=== PATIENT | male | born 1980 | race Caucasian/White ===

== ENCOUNTER 2022-02-17 09:21 | Emergency (ER) | payer BC, SELFPAY ==
[2022-02-17 09:25] VITALS: BP 161/100; PULSE 57; RESP 16; TEMP 35.9; O2SAT 100
--- NOTE | 2022-02-17 09:36 | ED.EYEPROB ---
HPI - Eye Problem General Chief complaint: Eye Problems Stated complaint: POSSIBLE PINKEYE Time Seen by Provider: 02/17/22 09:23 Source: patient Mode of arrival: ambulatory Limitations: no limitations History of Present Illness HPI Narrative: this is a 41-year-old male that presents with some conjunctival injection on the right, the patient does wear contacts and has had a yellowish discharge and crustiness no foreign body sensation no blurry vision no fever chills no nasal discharge no itching. chief complaint: eye redness Onset (ago): day(s) Onset description: gradual Duration: constant Location: right eye Eye Symptoms: redness and discharge Related Data Allergies Allergy/AdvReac Type Severity Reaction Status Date / Time No Known Allergies Allergy Verified 02/17/22 09:34 Review of Systems Review of Systems: All systems reviewed & are unremarkable except as noted in HPI and below PMFSH Past Medical History Medical History Patient denies medical problems Exam Const: General: healthy appearing Nutritional Appearance: well nourished Limitations: no limitations HENMT: Head: normal to inspection Face/Nose/Sinus: Normal external nose present Face and sinus: normal facial exam Eyes: Conjunctivae: conjunctival abnormality Pupils: Equal, round and reactive pupils present EOM: EOMs intact bilaterally Direct Ophthalmoscopy: photophobia Neck: Neck: normal visual inspection Chest: Chest palpation & inspection: normal inspection of the chest Resp: Effort & Inspection: normal respiratory effort Auscultation: clear to auscultation bilaterally Cardio: Rate: regular rate Rhythm: regular rhythm GI: Auscultation: normal bowel sounds Skin: General skin exam: normal color Rashes: no rashes Neuro: General: patient oriented x3 and moves all extremities Extrem: General: normal to inspection Psych: Mental Status: mental status grossly normal Affect: normal affect Course Course Emergency Course: patient received a antibiotic eye drop to his right eye. Critical Care Time Critical Care Time Critical Care Time: No Discharge Plan Discharge Clinical Impression: Bacterial conjunctivitis Patient Disposition: Home, Self-Care Condition: Stable Instructions: Antibiotic Form, Conjunctivitis (ED) Additional Instructions: take medicine as prescribed and follow-up with primary care physician if symptoms persist or worsen. advised patient not to wear contacts during the duration of antibiotic eyedrops. Blood pressure is mildly elevated today advised to follow-up primary care physician to monitor blood pressure. Prescriptions: New neomycin-polymyxin B-dexameth [Maxitrol] 3.5mg/mL-10,000 unit/mL-0.1 % drops,suspension 1 drp RIGHT EYE Q6H 7 Days Qty: 5 0RF Follow-up/Referrals: Jacquelyn,Malik Wilcox MD [Primary Care Provider] - Time of Disposition: 09:42
[2022-02-17] MEDS: NEOMYCIN/POLYMYXIN/DEXAMETH OP SUSP 5 ML BTL 1 DROP RIGHT EYE (09:51)
== END 2022-02-17 09:56 | disposition home or self-care (01) ==
LOC: CHSED 09:48
PROVIDERS: Emergency Provider Emergency Medicine; PCP Internal Medicine
DX: H10.89 Other conjunctivitis (principal)
CPT/HCPCS: 99283; A9270

== ENCOUNTER 2022-07-13 07:13 | Emergency (ER) | payer BC, SELFPAY ==
--- NOTE | 2022-07-13 07:16 | ED.EAR ---
HPI - Ear Problem General Chief complaint: Ear Stated complaint: Right ear pain Time Seen by Provider: 07/13/22 07:15 Source: patient Mode of arrival: ambulatory Limitations: no limitations History of Present Illness HPI Narrative: 41-year-old male with no significant past medical history presents to the ER with -- upper respiratory tract symptoms over the past 3 days -- right ear fullness and pain for the past 4 hours. No discharge. No deafness. No prior history of ear infections. No fever or chills. MD Complaint: ear pain Location: right ear Duration: constant Severity: moderate Relieving factors: nothing Exacerbating factors: nothing Context: Reports recent illness ( Recent upper respiratory tract infection over the past 3 days.) Discharge from ear: Reports no Treatment prior to arrival: none Related Data Allergies Allergy/AdvReac Type Severity Reaction Status Date / Time No Known Allergies Allergy Verified 07/13/22 07:25 Review of Systems Review of Systems: All systems reviewed & are unremarkable except as noted in HPI and below Constitutional: Constitutional: Reports as per HPI and Reports no additional constitutional complaints Eyes: Eyes: Reports as per HPI and Reports no additional eye complaints ENT: Comments: Right ear pain Cardiovascular: Cardiovascular: Reports as per HPI and Reports no additional cardiovascular complaints Respiratory: Respiratory: Reports as per HPI and Reports no additional respiratory complaints Comments: loud snoring Gastrointestinal: Gastrointestinal: Reports as per HPI and Reports no additional gastrointestinal complaints Genitourinary: Genitourinary: Reports no additional male genitourinary complaints and Reports as per HPI Musculoskeletal: Musculoskeletal: Reports no additional musculoskeletal complaints and Reports as per HPI Integumentary/Breasts: Skin/Breast: Reports system reviewed and no additional complaints, except as docu and Reports as per HPI Neurologic: Reports system reviewed and no additional complaints, except as documented and Reports as per HPI Psychiatric: Psychiatric: Reports no additional psychiatric complaints and Reports as per HPI Endocrine: Endocrine: Reports no additional endocrine complaints and Reports as per HPI Hematologic/Lymphatic: Hematologic/Lymphatic: Reports no additional hematologic/lymphatic complaints and Reports as per HPI Allergic/Immunologic: Allergic/Immunologic: Reports no additional allergic/immunologic complaints and Reports as per HPI PMFSH Past Medical History Medical History Patient denies medical problems Exam Const: General: healthy appearing and no acute distress Nutritional Appearance: well nourished Orientation/consciousness: patient oriented x3 Limitations: no limitations HENMT: Head: normal to inspection Ears: external ears normal and TM's normal bilaterally ( right tympanic membrane is red and bulging) Face/Nose/Sinus: Normal external nose present Face and sinus: normal facial exam Mouth: Yes Normal oral and palatal mucosa present Teeth and gingiva: dentition normal Throat: posterior oropharynx normal Other: crowded oropharynx Eyes: Conjunctivae: conjunctivae normal Pupils: Equal, round and reactive pupils present EOM: EOMs intact bilaterally Direct Ophthalmoscopy: no photophobia Neck: Neck: normal visual inspection, no lymphadenopathy and no meningeal signs Chest: Chest palpation & inspection: normal inspection of the chest Resp: Effort & Inspection: normal respiratory effort Auscultation: clear to auscultation bilaterally Cardio: Rate: regular rate Rhythm: regular rhythm GI: Auscultation: normal bowel sounds Other: no tenderness/rigidity / rebound. : General: Yes no CVA tenderness Back/Spine/Pelvis: Back: no CVA tenderness Skin: General skin exam: normal color Rashes: no rashes Wounds: no wounds Neuro: Gener
[2022-07-13 07:20] VITALS: BP 150/103; PULSE 88; RESP 18; TEMP 37; O2SAT 98
[2022-07-13] MEDS: HYDROcodone/acetaminophen (*CRX) 5-325 MG TABLET 1 TAB PO (07:43)
[2022-07-13 08:20] VITALS: BP 148/99; PULSE 86; RESP 18; TEMP 36.8; O2SAT 98
== END 2022-07-13 08:22 | disposition home or self-care (01) ==
LOC: CHSED 07:45
PROVIDERS: Emergency Provider Internal Medicine Critical Care Medicine; PCP Internal Medicine
DX: H66.91 Otitis media, unspecified, right ear (principal); I10 Essential (primary) hypertension
CPT/HCPCS: 99283; A9270

== ENCOUNTER 2024-10-11 10:28 | Emergency (ER) | payer BC, SELFPAY ==
--- NOTE | ~2024-10-11 | CT_ITS ---
History: Lower back pain radiating to the right leg x2 days without a known injury. PROCEDURE: CT lumbar spine without intravenous contrast. COMPARISON: None TECHNIQUE: Multiple contiguous axial images of the lumbar spine were performed without the administration of int ravenous contrast. DLP: 1627 mGy-cm FINDINGS: The alignment of the lumbar spine is maintained. Degenerative disease is noted, with bridging osteophyte formation and disc space narrowing at the lev els of T11/T12 and L1/L2. Anterior osteophyte formation within the inferior endplate of the vertebral body of L3. Superior endplate sclerosis at the level of S1 without significant disc space narrowing. AT THE LEVEL OF L1/L2: No significant degenerative disc disease is identified. AT THE LEVEL OF L2/L3: A broad-based disc protrusion is identified with mass effect on both the spina l canal and bilateral neural foramen. Trace hypertrophy of the ligamentum flavum is also noted, contributing to the degree of spinal stenos is. Spinal canal measures 14.8 mm in anterior to posterior dimension at this level. AT THE LEVEL OF L3/L4: A right paracentral disc protrusion with mass effect on both the spinal canal and right neural foramen. Moderate hypertrophy of the ligamentum flavum is also noted contributing to the degree of spinal sten osis. The spinal canal measures 12.2 mm in anterior to posterior dimension at this level. AT THE LEVEL OF L4/L5: A right paracentral disc protrusion with mass effect on both the spinal canal and right neural foramen. Hypertrophy of the ligamentum flavum is also noted, contributing to the degree of spinal stenosis The spinal canal measures 10.4 mm in anterior to posterior dimension at this level. AT THE LEVEL OF L5/S1: No significant disc protrusion. No acute compression fractures are present. No significant atrophy of the paraspinous musculature is present Asymmetric iliopsoas muscles are noted, with the left being larger than the right, likely compensatin g for the right paracentral disc disease. Impression: No acute compression fractures. Significant disc disease with right paracentral spinal stenosis most prominent at the level of L4/L5, as detailed above. Reviewed, dictated and finalized at location A. Impression: No acute compression fractures. Significant disc disease with right paracentral spinal stenosis most prominent at the level of L4/L5, as detailed above.
--- OUTSIDE RECORDS SUMMARY | 2024-10-11 10:31 | XMS_ITS | Encounter Summary ---
Author Organization [facility] Address 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 [address] [place] [address] PCP - General 02/10/04 documented as of this encounter
--- OUTSIDE RECORDS SUMMARY | 2024-10-11 10:31 | XMS_ITS | Encounter Summary ---
Author Organization [facility] Address 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
--- OUTSIDE RECORDS SUMMARY | 2024-10-11 10:31 | XMS_ITS | Encounter Summary ---
Author Organization [facility] Address [address] [place] [address] Care Team Providers Care Superintendent Transportation Name Role Phone Malik Valladares MD Primary Care Provider [phone] Encounter Details Date Type Department Care Team (Late st Contact Info) Description 06/20/2007 Orders Only [facility] Internal Medicine [address] [address] Malik Valladares MD [address] [place] [address] Social History Tobacco Use Types Packs/Day Years Used Date Smoking Tobacco: Never Assessed Sex and Gender Information Value Date Recorded Sex Assigned at Not on file 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 DISCUSSED SMOKING: neg. PHYSICAL EXAMINATION: CONSTITUTIONAL: GENERAL APPEARANCE: Healthy appearing patient in no distress. EARS, NOSE, MOUTH AND THROAT: EARS: EFFUSION PRESENT BILATERALLY, TYMPANIC MEMBRANES INFLAMED BILATERALLY. ORAL: OROPHARYNX ERYTHEMATOUS. NECK/THYROID: Trachea midline. No thyroid enlargement, tenderness, or mass. No supraclavicular or cervical adenopathy. RESPIRATORY: Clear to auscultation and percussion. Normal respiratory effort. CARDIOVASCULAR: CARDIAC: Regular rhythm. No murmurs, rubs, or gallops. ARTERIAL: No aortic bruits. EDEMA/VARICOSITIES OF EXTREMITIES: No edema or varicosities. GASTROINTESTINAL: ABDOMEN: Soft, non-tender, without masses. Bowel sounds active. LIVER/SPLEEN/KIDNEY: No hepatosplenomegaly, tenderness or nodularity. Kidneys not palpable. ASSESSMENT/PLAN: 790.5-ABNORMAL LIVER ENZYMES reassess wt loss advised 461.9-SINUSITIS UNSPECIFIED rx MEDICATIONS: LEVAQUIN ORAL TABLET 500 MG, 1 Every Morning, 10 Dispensed, status: NEW PRESCRIPTION, 06/20/2007. VERAMYST NASAL SUSPENSION 27.5 MCG/SPRAY, 2 Every Morning, 2 Dispensed, status: NEW PRESCRIPTION, 06/20/2007. 796.2-BLOOD PRESSURE ELEVATED W/O DX OF HTN LAB ORDERS: 3 mo Order number: [id number] Test Ordered: COMPREHENSIVE METABOLIC PANEL & GFR 1112 Order number: [id number] Test Ordered: LIPID PANEL 1078 Order number: [id number] Test Ordered: TSH 1720 PREVENTIVE COUNSELING The patient was counseled regarding the appropriate use of alcohol, diet, regular sustained exercise for at least 30 minutes 3-4 times per week. Patient Education: Risks, benefits, and possible side effects of medication(s) were reviewed with the patient. The patient was allowed to ask questions to stated satisfaction. RETURN VISIT : Patient instructed to return in 3 months. Electronically Signed by: Malik Valladares MD on Wednesday, June 20, 2007 * Malik Valladares MD - 09/13/2007 6:09 PM CDT WEIGHT: 259lbs BLOOD PRESSURE: 150/90 Right Arm Sitting TEMPERATURE: 36.67??c Oral NURSE NAME: Jean-Pierre Willams N TOBACCO USE Patient does not currently use tobacco. CHIEF COMPLAINT Patient complains of head congestion, cough, earaches, sore throat. documented in this encounter Plan of Treatment Not on file documented as of this encounter Visit Diagnoses Not on filedocumented in this encounter Care Teams Superintendent Transportation Relationship Specialty Start Date End Date Malik Valladares MD [address] [place] [address] PCP - General 02/10/04 documented as of this encounter
--- OUTSIDE RECORDS SUMMARY | 2024-10-11 10:31 | XMS_ITS | Encounter Summary ---
Author Organization [facility] Address [address] [place] [address] Care Team Providers Care Laboratory Technician Name Role Phone Malik Valladares MD Primary Care Provider [phone] Encounter Details Date Type Department Care Team (Late st Contact Info) Description 05/07/2003 Outpatient Historical [facility] Internal Medicine [address] [address] Malik Valladares MD [address] [place] [address] Social History Tobacco Use Types Packs/Day Years Used Date Smoking Tobacco: Never Assessed Sex and Gender Information Value Date Recorded Sex Assigned at Not on file Legal Sex Male 5:27 AM 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 MANAGER Gender Identity Not on file Sexual Orientation Not on file documented as of this encounter Last Filed Vital Signs Vital Sign Reading Time Taken Comments Blood Pressure 130/88 05/07/2003 4:00 PM STAFFING MANAGER Pulse - - Temperature - - Respiratory Rate - - Oxygen Saturation - - Inhaled Oxygen Concentration - - Weight 112.5 kg (248 lb) 05/07/2003 4:00 PM STAFFING MANAGER Height 175.3 cm (5' 9) 05/07/2003 4:00 PM STAFFING MANAGER Body Mass Index 36.62 05/07/2003 4:00 PM STAFFING MANAGER documented in this encounter Plan of Treatment Not on file documented as of this encounter Visit Diagnoses Not on filedocumented in this encounter Care Teams Laboratory Technician Relationship Specialty Start Date End Date Malik Valladares MD [address] [place] [address] PCP - General 02/10/04 documented as of this encounter
--- OUTSIDE RECORDS SUMMARY | 2024-10-11 10:31 | XMS_ITS | Encounter Summary ---
Author Organization [facility] Address 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
--- OUTSIDE RECORDS SUMMARY | 2024-10-11 10:31 | XMS_ITS | Clinical Summary ---
Author Organization [facility] Address [address] [place] [address] Care Team Providers Care Stringed Instrument Repairer Name Role Phone Malik Valladares MD Primary Care Provider [phone] Allergies Active Allergy Reactions Criticality Noted Date Comments Methylprednisolone Nausea and Vomiting,Dizziness Low 11/15/2013 Medications fluticasone (FLONASE) 50 mcg/spray Both Nostril SpSn Administer 2 Sprays in each nostril daily. 16 Gram 3 3 Active neomycin-polymy liz-hydrocortis one (CORTISPORIN) 3.5-10,000-1 mg/mL-unit/mL-% otic solution Administer 3 Drops in left ear 4 times daily. 10 mL 7 Active HYDROcodone-shonna taminophen (NORCO) 5-325 mg tablet Take 1 Tablet by mouth every 4 hours as needed for Pain, Moderate. Max Daily Amount: 6 Tablets 10 Tablet 9 Active DULoxetine (CYMBALTA) 30 mg Capsule, Delayed Release(E.C.) Take 1 Capsule (30 mg) by mouth daily. 90 Capsule 3 9 Active Active Problems Patient Care Coordination No te Formatting of this note migh t be different from the original. Prev 05/23/18 Problem Noted Date Diagnosed Date Elevated blood pressure read ing without diagnosis of hypertension 06/20/2007 Other nonspecific abnormal serum enzyme levels 0 05/07/2003 Resolved Problems Problem Noted Date Diagnosed Date Resolved Date Acute sinusitis, unspecified 06/20/2007 12/26/2016 DIARRHEA NOS 01/26/2004 06/06/2011 Rosacea 05/07/2003 06/06/2011 STOMACH FUNCTION DIS NEC 05/07/2003 Immunizations Immunization Administration Dates Next Due (ADACEL/BOOSTRIX)(10 YR UP) TDAP VACCINE, 0.5ML, IM 05/03/2018,11/15/2013 (PNEUMOVAX 23)(50 YRS UP) PN EUMOCOCCAL POLYSACCHARIDE (PPV23) 0.5 ML, IM 05/09/2018,07/29/1998 (TDVAX)(7 YRS UP) TETANUS AN D DIPHTHERIA TOXOIDS, ADSORBED (2 LF OF TETANUS TOXOID AND 2 LF OF DIPHTHERIA TOXOID), 0.5ML (PF), IM 07/29/1998 Influenza Seasonal Unspecified Formulation IM Family History Medical History Relation Name Comments Diabetes Father High Cholesterol Father Hypertension Father Diabetes Mother High Cholesterol Mother Hypertension Mother Relation Name Status Comments Father Mother Social History Tobacco Use Types Packs/Day Years Used Date Smoking Tobacco: Former Alcohol Use Standard Drinks/Week Comments Yes 0 (1 standard drink = 0.6 oz pur e alcohol) Sex and Gender Information Value Date Recorded Sex Assigned at Not on file Legal Sex Male 5:27 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 Gender Identity Not on file Sexual Orientation Not on file Last Filed Vital Signs Vital Sign Reading Time Taken Comments Blood Pressure 110/80 08/21/2018 10:38 AM CDT Pulse 85 08/21/2018 10:38 AM CDT Temperature 36.9 C (98.5 F) 08/21/2018 10:38 AM CDT Respiratory Rate - - Oxygen Saturation 96% 08/21/2018 10:38 AM CDT Inhaled Oxygen Concentration - - Weight 99.3 kg (219 lb) 08/21/2018 10:38 AM CDT Height 177.8 cm (5' 10) 08/21/2018 10:38 AM CDT Body Mass Index 31.42 08/21/2018 10:38 AM CDT Plan of Treatment Health Maintenance Due Date Last Done Comments HEPATITIS B VACCINES (1 of 3 - 19+ 3-dose series) 1997 COLORECTAL SCREENING 09/27/2023 Colorectal Cancer Screening 09/27/2023 FIT-DNA Q 3 years 09/27/2023 FIT/FOBT Q 1 year 09/27/2023 Flex Sig/CT Colonography Q 5 years 09/27/2023 INFLUENZA VACCINE (#1) 2023 01/08/2018 Preventative Visit- Commercial 04/10/2024 05/23/2018, 12/26/2016, 11/15/2013, Additional history exists DTAP/TDAP/TD VACCINES (3 - Td or Tdap) 05/03/2028 05/03/2018, 11/15/2013, 07/29/1998 HPV VACCINES Aged Out No longer eligi ble based on patient's age to complete this topic Insurance Care Teams Stringed Instrument Repairer Relationship Specialty Start Date End Date Malik Valladares MD [address] [place] [address] PCP - General 02/10/04
--- OUTSIDE RECORDS SUMMARY | 2024-10-11 10:31 | XMS_ITS | Encounter Summary ---
Author Organization [facility] Address [address] [place] [address] Care Team Providers Care Detail Sergeant Name Role Phone Malik Valladares MD Primary Care Provider [phone] Encounter Details Date Type Department Care Team (Late st Contact Info) Description 01/26/2004 Outpatient Historical [facility] Internal Medicine [address] [address] Malik Valladares MD [address] [place] [address] Social History Tobacco Use Types Packs/Day Years Used Date Smoking Tobacco: Never Assessed Sex and Gender Information Value Date Recorded Sex Assigned at Not on file Legal Sex Male 5:27 AM ACCESS CONTROL OFFICER Gender Identity Not on file Sexual Orientation Not on file documented as of this encounter Last Filed Vital Signs Vital Sign Reading Time Taken Comments Blood Pressure 130/78 01/26/2004 10:30 AM CDT Pulse - - Temperature - - Respiratory Rate - - Oxygen Saturation - - Inhaled Oxygen Concentration - - Weight 113.9 kg (251 lb) 01/26/2004 10:30 AM CDT Height - - Body Mass Index 37.07 05/07/2003 4:00 PM ACCESS CONTROL OFFICER documented in this encounter Plan of Treatment Not on file documented as of this encounter Visit Diagnoses Not on filedocumented in this encounter Care Teams Detail Sergeant Relationship Specialty Start Date End Date Malik Valladares MD [address] [place] [address] PCP - General 02/10/04 documented as of this encounter
--- OUTSIDE RECORDS SUMMARY | 2024-10-11 10:31 | XMS_ITS | Encounter Summary ---
Author Organization [facility] Address 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
--- OUTSIDE RECORDS SUMMARY | 2024-10-11 10:31 | XMS_ITS | Data Portability ---
Author Organization [facility] Address [address] [place] [address] Care Team Providers Care Quality Control Specialist Name Role Phone NUPUR STONE Primary Care Provider Assessment No assessment recorded. Plan of Treatment Reminders Order Date Submit Date Provider Last Modified By Organization Details Last Modified Time Details Appointments ANY 15 2024 03:00P M Nupur Stone APN, WOOD MILLING MACHINE TENDER-C Not available Not available Not available Lab noninvasi ve colorecta l cancer DNA + occult blood screening , QL, stool [facility]24 [facility] [address], [address], [place], [address], 07/09/2024 11:03:31 TSH, ultra-sen sitive, serum 2024 025 [facility], [address], [address], [place], [address], 07/10/2024 04:09:38 CMP, serum or plasma 2024 025 [facility], [address], [address], [place], [address], 07/10/2024 03:08:44 lipid panel, serum 2024 025 [place] [facility] [facility], [address], [address], [place], [address], 07/10/2024 03:08:43 CBC 2024 025 [place] [facility], [address], [address], [place], [address], 07/10/2024 03:08:46 Referral gastroent erologist referral 2024 025 [facility], [address], [address], [place], [address], 10/09/2024 10:43:05 nephrolog ist referral 2024 025 esha Cook MD, [address] [facility] , [address], [address], [place], [address], 10/04/2024 08:38:46 Procedures None recorded. Surgeries None recorded. Imaging None recorded. Medication Orders None recorded. Patient TargetsNo targets recorded. Patient Instructions Encounter Date Encounter Id Patient Instructions Last Modified By Organization Details Last Modified Time 07/09/2024 [id number] A healthy lifestyle: care instructions Not available 07/09/2024 11:03:27 Avoid eating lat e at night and foods that are spicy or acidic. Decrease fatty foods and increase fresh fruits and vegetables and daily intake of fiber. Drink at least 8-10 glasses of water per day. Increase activity level and work up to at least 30 minutes of exercise most days of the week. Not available 07/09/2024 18:32:15 f/u 3 months DWP barriers to care: none Not available 07/09/2024 18:32:19 Reason for Referral Family Services Specialist Referral for Ab sent kidney Referring Physician: Nupur Stone [facility], Encounter Date: 07/09/2024 [employer] Referral for Hiatal hernia Referring Physician: Nupur Stone [facility], Encounter Date: 07/09/2024 Results Created Date Observation Date Name Description Value Unit Range Abnormal Flag Note LastModifiedBy Organization Detail LastModifiedTime 07/10/19 25 07/09/2024 LIPID PANEL cholesterol, total 218 mg/dL 100-19 9 above high normal Not Available [facility] [address] [place], [address], 07/10/2024 03:08:43 07/10/19 25 07/09/2024 LIPID PANEL triglyceride s 311 mg/dL 0-149 above high normal Not Available [facility] [address] [place] [address], [address], 07/10/2024 03:08:43 07/10/19 25 07/09/2024 LIPID PANEL HDL cholesterol 38 mg/dL 40-999 below low normal Not Available [facility] [address] [place], [address], 07/10/2024 03:08:43 07/10/19 25 07/09/2024 LIPID PANEL VLDL cholesterol damaris 62 mg/dL 5-40 above high normal Not Available [facility] [address] [place] [address], [address], 07/10/2024 03:08:43 07/10/19 25 07/09/2024 LIPID PANEL LDL chol calc (nih) 161 mg/dL 0-99 above high normal Not Available [facility] [address] [place], [address], 07/10/2024 03:08:43 07/10/19 25 07/09/2024 COMP. METAB OLIC PANEL (14) glucose 285 mg/dL 70-99 above high normal Not Available [facility] [address] [place], [address], 07/10/2024 03:08:44 07/10/19 25 07/09/2024 COMP. METAB OLIC PANEL (14) BUN 15 mg/dL 6-24 Not Available [facility] [address] [place], [address], 07/10/2024 03:08:44 07/10/19 25 07/09/2024 COMP. METAB OLIC PANEL (14) creatinine 0.86 mg/dL 0.76-1 .27 Not Available [facility] [address] [place] [address], [address], 07/10/2024 03:08:44 07/10/19 25 07/09/2024 COMP. METAB OLIC PANEL (14) eGFR 109 >=60 Units for eGFR value s are mL/mi n/1.7 3 The eGFR Calcu latio n has not been valid ated for patie nts under the age of 18. If test resul ts are displ ayed for a patie nt under the age of 18, disre vern that value . Not Available [facility] [address] [place], [address], 07/10/2024 03:08:44 07/10/19 25 07/09/2024 COMP. METAB OLIC PANEL (14) BUN/creatini ne ratio 18 9-20 Not Available [facility] [address] [place], [address], 07/10/2024 03:08:44 07/10/19 25 07/09/2024 COMP. METAB OLIC PANEL (14) sodium 139 mmol/ L 134-14 4 Not Available [facility] [address] [place], [address], 07/10/2024 03:08:44 07/10/19 25 07/09/2024 COMP. METAB OLIC PANEL (14) potassium 4.7 mmol/ L 3.5-5. 2 Not Available [facility] [address] [place], [address], 07/10/2024 03:08:44 07/10/19 25 07/09/2024 COMP. METAB OLIC PANEL (14) chloride 100 mmol/ L 96-106 Not Available [facility] [address] [place], [address], 07/10/2024 03:08:44 07/10/19 25 07/09/2024 COMP. METAB OLIC PANEL (14) carbon dioxide, total 26 mmol/ L 20-29 Not Available [facility] [address] [place] [address], [address], 07/10/2024 03:08:44 07/10/19 25 07/09/2024 COMP. METAB OLIC PANEL (14) calcium 10.1 mg/dL 8.7-10 .2 Not Available [facility] [address] [place], [address], 07/10/2024 03:08:44 07/10/19 25 07/09/2024 COMP. METAB OLIC PANEL (14) protein, total 7.3 g/dL 6.0-8. 5 Not Available [facility] [address] [place], [address], 07/10/2024 03:08:44 07/10/19 25 07/09/2024 COMP. METAB OLIC PANEL (14) albumin 4.5 g/dL 4.1-5. 1 Not Available [facility] [address] [place], [address], 07/10/2024 03:08:44 07/10/19 25 07/09/2024 COMP. METAB OLIC PANEL (14) globulin, total 2.8 g/dL 1.5-4. 5 Not Available [facility] [address] [place], [address], 07/10/2024 03:08:44 07/10/19 25 07/09/2024 COMP. METAB OLIC PANEL (14) A/G ratio 2.0 1.2-2. 2 Not Available [facility] [address] [place], [address], 07/10/2024 03:08:44 07/10/19 25 07/09/2024 COMP. METAB OLIC PANEL (14) bilirubin, total 0.3 mg/dL 0.0-1. 2 Not Available [facility] [address] [place], [address], 07/10/2024 03:08:44 07/10/19 25 07/09/2024 COMP. METAB OLIC PANEL (14) alkaline phosphatase 76 IU/L 44-121 Not Available [facility] [address] [place], [address], 07/10/2024 03:08:44 07/10/19 25 07/09/2024 COMP. METAB OLIC PANEL (14) AST (SGOT) 39 U/L 0-40 Not Available [facility] [address] [place], [address], 07/10/2024 03:08:44 07/10/19 25 07/09/2024 COMP. METAB OLIC PANEL (14) ALT (SGPT) 86 IU/L 0-44 above high normal Not Available [facility] [address] [place], [address], 07/10/2024 03:08:44 07/10/19 25 07/09/2024 CBC, PLATE LET, NO DIFFE RENTI AL WBC 7.4 x10e3 /uL 3.4-10 .8 Not Available [facility] [address] [place], [address], 07/10/2024 03:08:45 07/10/19 25 07/09/2024 CBC, PLATE LET, NO DIFFE RENTI AL RBC 5.03 x10e6 /uL 4.14-5 .80 Not Available [facility] [address] [place], [address], 07/10/2024 03:08:45 07/10/19 25 07/09/2024 CBC, PLATE LET, NO DIFFE RENTI AL hemoglobin 15.4 g/dL 13.0-1 7.7 Not Available [facility] [address] [place], [address], 07/10/2024 03:08:45 07/10/19 25 07/09/2024 CBC, PLATE LET, NO DIFFE RENTI AL hematocrit 45.3 % 37.5-5 1.0 Not Available [facility] [address] [place], [address], 07/10/2024 03:08:45 07/10/1907/09/2024 CBC, PLATE LET, NO DIFFE RENTI AL MCV 90 fL 79-97 Not Available [facility] [address] [place], [address], 07/10/2024 03:08:45 07/10/1907/09/2024 CBC, PLATE LET, NO DIFFE RENTI AL MCH 30.6 pg 26.6-3 3.0 Not Available [facility] [address] [place], [address], 07/10/2024 03:08:45 07/10/1907/09/2024 CBC, PLATE LET, NO DIFFE RENTI AL MCHC 34.0 g/dL 31.5-3 5.7 Not Available [facility] [address] [place], [address], 07/10/2024 03:08:45 07/10/1907/09/2024 CBC, PLATE LET, NO DIFFE RENTI AL RDW 12.5 % 11.5-1 4.5 Not Available [facility] [address] [place], [address], 07/10/2024 03:08:45 07/10/1907/09/2024 CBC, PLATE LET, NO DIFFE RENTI AL platelets 260 x10e3 /uL 150-45 0 Mean Plate let Volum e 10.1 fL 8.9-1 2.7 N Not Available [facility] [address] [place], [address], 07/10/2024 03:08:45 07/10/1907/09/2024 CBC, PLATE LET, NO DIFFE RENTI AL NRBC 0 % 0-0 Not Available [facility] [address] [place] [address], [address], 07/10/2024 03:08:45 07/10/19 25 07/10/2024 TSH RFX ON ABNOR MAL TO FREE T4 TSH 2.540 uIU/m L 0.450- 4.500 Not Available [facility] ([facility]) [address] [facility], [place], [address], 07/10/2024 04:09:38 07/10/19 25 07/10/2024 VERBA L ORDER see below: Commen t: Jose mcknight provi de reque sted infor matvalentine n and fax to [phone]. [place] Code of [place] Regul ation s requi res a writt en and dinesh d reque st be forwa rded to a labor atory follo wing a verba l order of a labor atory test. Jose fisher t us to meet this requi remen t and to compl ete our recor ds. Date: Diagn osis code( s) provi ded for this order : Z00.0 1 Addit ional Diagn osis Code( s):__ _ Pleas e Print ICD-9 /10 Diagn osis Code( s):__ _ Physi mark or Autho rized Desig nee:_ _ Pleas e Print Physi mark or Autho rized Desig nee Signa ture: Your Signa ture Confi kodi Your Order Of The Test( s) Liste d Not Available [facility] ([facility]) [address] [facility], [place], [address], 07/10/2024 16:13:38 07/10/19 25 07/10/2024 VERBA L ORDER additional test(s) requested Commen t: Test( s) added per Hina vance at [facility] nt 07-10 Logge d by Lindsey Bonnerh ens Test# 11400 3 Hemog lobin A1c Test# [id number] 7 Sent to Refer ence Lab Not Available [facility] ([facility]) [address] [facility], [place], [address], 07/10/2024 16:13:38 07/11/19 25 07/10/2024 HbA1c (hemo globi n A1c), blood hemoglobin A1C 10.5 abnormal Not Available [facility] ([facility]) [address] [facility], [place], [address], 07/12/2024 16:00:38 Result Notes None recorded. Problems Name Problem SNOMED Code Status Onset Date Resolution Date Notes Provider Name and Address Organization Details Recorded Time Hiatal hernia 14469944 Active 2024 Nupur Stone APN, FNP-C Attn: Fara virgen,[address] [facility], [place], [address], [facility] 5 18:32:08 Liver enzymes level above reference range 185509164 Active 2024 Nupur Stone APN, FNP-C Attn: Fara virgen,[address] [facility], [place], [address], [facility] 5 14:08:10 Hyperglycemia 49916748 Active 2024 Nupur Stone APN, FNP-C Attn: Fara g,[address] [facility], [place], [address], [facility] 14:08:29 Problem Notes None recorded. Procedures Surgical History Date Name Laterality Status Provider Name and Address Organization Details Recorded Time 5 hernia repair completed Nupur Stone APN, FNP-C Attn: Accounting,[address] [facility], [place], [address], [facility] 07/09/2024 10:55:10 4 tonsillectomy completed Nupur Stone APN, FNP-C Attn: Accounting,[address] [place], [address], [facility] 07/09/2024 10:54:55 Imaging Results None recorded. Procedure Notes None recorded. Medical Equipment None Reported. Allergies Allergen ID Allergen Name Allergen Category Reaction Reaction Severity Criticality Documentation Date Start Date Code Code System Note Provider Name and Address Organization Details Recorded Time 932036 mold extract environme nt Not available Not available Not available 07/09/2024 21372 8 RxNorm aller STEPHON Patiño, [facility] 10:22:40 554983 POLLEN EXTRACTS environme nt,medica tion Not available Not available Not available 07/09/2024 12250 6 RxNorm aller STEPHON Patiño, [facility] 11:05:23 Medications Not known to be on any medication Vitals Date Recorded Body mass index (BMI) Body height Systolic And Diastolic Provider Name and Address Organization Details Last Updated DateTime 07/09/2024 42.8 kg/m2 177.8 cm 162/92 mm[Hg] Nupur Stone APN, FNP-C Attn: Accounting,[address] [place], [address], [place] [facility] 07/09/2024 11:03:18 Date Recorded Body weight Oxygen saturation Oxygen saturation in Arterial blood by Pulse oximetry Respiratory rate Body temperature Heart rate Systolic And Diastolic Provider Name and Address Organization Details Last Updated DateTime 5 087636. 53 g 97 % 97 % 16 /min 98 [degF] 82 /min 166/110 mm[Hg] STEPHON Mitchell - [facility] 10:36:00 Social History Question Answer Notes LastModified by Organizat ion Details LastModified Time Tobacco Smoking Status Never Smoker STEPHON Mitchell null, [place] - [facility] 07/09/2024 10:27:41 Are You Blind Or Do You Have Difficulty Seeing? No Information n ot available 07/09/2024 What Is Your Level Of Caffeine Consumption? Heavy Tea Information not available 07/09/2024 In The 14 Days Before Symptom Onset, Have You Had Close Contact With A Laboratory-confirm ed COVID-19 While That Case Was Ill? No Information n ot available 07/09/2024 In The 14 Days Before Symptom Onset, Have You Had Close Contact With A Person Who Is Under Investigation For COVID-19 While That Person Was Ill? No Information not available 07/09/2024 Have You Been To An Area Known To Be High Risk For COVID-19? No Information not available 07/09/2024 Are You Deaf Or Do You Have Serious Difficulty Hearing? No Information not available 07/09/2024 What Type Of Diet Are You Following? REGULAR Information n ot available 07/09/2024 Are There Any Guns Present In Your Home? No Information not available 07/09/2024 What Was The Date Of Your Most Recent Tobacco Screening? 07/09/2024 Information not available 07/09/2024 How Many Children Do You Have? 3 Information not available 07/09/2024 What Is Your Relationship Status? Information not available 07/09/2024 Do You Use Your Seat Belt Or Car Seat Routinely? Yes Information not available 07/09/2024 Do You Have Smoke And Carbon Monoxide Detectors In Your Home? Yes Information not available 07/09/2024 Are You Passively Exposed To Smoke? No Information no t available 07/09/2024 Do You Use Sunscreen Routinely? Yes Information not available 07/09/2024 Has Tobacco Cessation Counseling Been Provided? Yes Information not available 07/09/2024 On What Date Was Tobacco Cessation Counseling Provided? 07/09/2024 Information not available 07/09/2024 Sex: Male Functional Status Question Answer Note LastModified by Organizat ion Details LastModified Time Do you use any illicit or recreational drugs? Yes occ marijuanna Information not available 07/09/2024 Do you or have you ever used any other forms of tobacco or nicotine? No Information not available 07/09/2024 What is your level of alcohol consumption? Moderate Information not available 07/09/2024 Are you currently employed? Yes Information not available 07/09/2024 Are you able to care for yourself? 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 Occasional work Information not available 07/09/2024 Mental Status Question Answer Note LastModified by Organization D etails LastModified Time Do you feel stressed (tense, restless, nervous, or anxious, or unable to sleep at night)? [id number] Information not available 07/09/2024 Family History Relationship Description Onset Age of this Age Resolved Age Notes LastModified by Organization Details LastModified Time Father Diabetes mellitus [email or web address] Not available 04/2024 10:24:25 Mother Diabetes mellitus jschulterma Not available 04/2024 10:24:38 Mother Cerebrovascu lar accident jschulterma Not available 0 07/09/2024 10:24:48 Mother Disorder of thyroid gland jschulterma Not available 04/2024 10:25:44 Paternal Grandmother Malignant neoplasm of lung jschulterma Not available 04/2024 10:26:06 Paternal Grandfather Alzheimer's disease jschulterma Not available 04/2024 10:26:18 Maternal Grandfather Myocardial infarction jschulterma Not available 04/2024 10:26:34 Medical History Condition Response Coronary Artery Disease N Atrial Fibrillation N High Blood Pressure N Kidney or Bladder Problems N Thyroid Problems N GI Problems Y Depression N COPD N Blood Clots N Eating Disorder N Skin Problems N Anemia N Heart Attack (HI) N Anxiety Disorder N Diabetes N Muscle, Joint, or Bone Problems N Arthritis N Seizures/Epilepsy N Have you had a colonoscopy in the last 1 0 years? N Acid Reflux (GERD) Y Cancer N Stroke N Asthma N Allergies Y Substance Abuse N High Cholesterol N Hepatitis N Liver Disease N Headaches N Osteoporosis N Heart Failure N Immunizations Vaccine Type Date Status Note Provider Nam e and Address Organization Details Recorded Time COVID-19, mRNA, LNP-S, PF, 30 mcg/0.3 mL dose 12/21/2020 completed Nupur Stone APN, WOOD MILLING MACHINE TENDER-C Attn: Accounting,[address] [facility], [place], [address], [facility] 07/09/2024 10:44:17 Past Encounters Encounter ID Performer Location Encounter Start Date Encounter Closed Date Diagnosis/Indication Diagnosis SNOMED-CT Code Diagnosis ICD10 Code Diagnosis Note [id number] [facility] ([facility]) [address] [place] [address] 07/09/2024 10:11:27 07/10/2024 16:18:37 Adult health examination 115680509 Z00.01 Encouraged patient to eat well balanced meals, live active lifestyle and attend routine vision/den jovan apts. Obesity 975227660 E66.9 advised low fat, low cholestero l diet, regular exercise and weight reduction. 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, will refer for htn mgmt Elevated blood-pressure reading without diagnosis of hypertension 516883041 R03.0 BP in pre-hypert ensive range, dwp risk, reducing salt and increasing exercisedi scussed with patient referral for Nephrology given that he has 1 kidney Hiatal hernia 78747136 K 44.9 hernia repair in 2014, has not followed up, intermitte nt pain with regards to certain foods/meal s, we will refer to GI Screening for malignant neoplasm of colon 892521238 Z12.11 Health Concerns Section Related Observation LastModified by Organization Detai ls LastModified Time None Recorded Concern Status LastModified by Organization Details LastModified Time None Recorded Advance Directives Directive None Recorded Payers Insurance Date Sequence Insurance Name Policy Number Policy Enriquez Covered Member ID Enriquez Member ID Guarantor Name 07/10/2024 1 [facility] (MEDICAID REPLACEMENT - HMO) [id number] Salty Agarwal [id number] Salty Agarwal Notes Date Note Type Note Provider Name and Address Organization Details Recorded Time 07/09/2024 text/html [facility] Was seeing pcp in [place] Malik Valladares. Last seen him in 2023 pt c/o Upper abdominal pain. states he has had a hernia. states he has had a balloon inserted. pain comes and goes. done at [facility] in 2014.pt was born with 1 kidney- does not like to take meds Nupur Stone APN, WOOD MILLING MACHINE TENDER-C Attn: Accounting,[address] [facility], [place], [address], [facility] 07/09/2024 18:33:00
--- OUTSIDE RECORDS SUMMARY | 2024-10-11 10:31 | XMS_ITS | Clinical Summary ---
Author Organization [facility] Address [address] [place] [address] Care Team Providers Care Dot Net Developer Name Role Phone Malik Valladares MD Primary Care Provider [phone] Source Comments [facility],non-owned Affiliates and Associated Physician Practices is amultiple site organization consisting of ambulatory clinics and hospital sitesin [place], [place], [place] and [place]. This disclosure is being madepursuant to the Care Everywhere program and may not contain all information available regarding this patient. Last updated 17.[facility] Medications * Be aware that medications may not be up to date on this document. Alwaysverify current medications with the patient. HYDROcodone-ac etaminophen (NORCO) 5-325 MG tablet Take 1-2 tablets by mouth every 6 hours as needed for Pain Do not exceed 3 grams of acetaminophen (TYLENOL) daily. 10 tablet 9 Active Active Problems Problem Noted Date Diagnosed Date Class 1 obesity due to exces s calories with body mass index (BMI) of 32.0 to 32.9 in adult 05/04/2018 Acute blood loss anemia 05/04/2018 Solitary kidney, congenital 05/04/2018 Overview (05/04/2018): Right present Hyperglycemia 05/04/2018 Traumatic retroperitoneal hematoma 05/04/2018 Concussion w moderate LOC w/o open intracranial wound 05/04/2018 Minor laceration of spleen 05/03/2018 Closed displaced fracture of posterior wall of left acetabulum 05/03/2018 Scalp laceration, initial encounter 05/03/2018 Fracture of multiple ribs of both sides 05/03/19 19 Contusion of mesentery 05/03/2018 Fracture of right radius 05/03/2018 Alcoholic intoxication without complication 04/11 Immunizations Immunization Administration Dates Next Due PNEUMOCOCCAL PPSV23 07/29/1998 TD (AGE 7-ADULT) 07/29/1998 TDAP (7yrs+) 05/03/2018,11/15/2013 Social History Tobacco Use Types Packs/Day Years Used Date Smoking Tobacco: Unknown Sex and Gender Information Value Date Recorded Sex Assigned at Not on file Legal Sex Male 12:16 AM MATERIALS PLANNER/PRODUCTION PLANNER Gender Identity Not on file Sexual Orientation Not on file Last Filed Vital Signs Vital Sign Reading Time Taken Comments Blood Pressure 141/86 05/04/2018 7:00 AM MATERIALS PLANNER/PRODUCTION PLANNER Pulse 96 05/04/2018 7:00 AM MATERIALS PLANNER/PRODUCTION PLANNER Temperature 36.2 C (97.1 F) 05/04/2018 12:43 AM MATERIALS PLANNER/PRODUCTION PLANNER Respiratory Rate 16 05/04/2018 7:00 AM MATERIALS PLANNER/PRODUCTION PLANNER Oxygen Saturation 97% 05/04/2018 6:00 AM MATERIALS PLANNER/PRODUCTION PLANNER Inhaled Oxygen Concentration - - Weight 104.3 kg (230 lb) 05/03/2018 12:50 AM MATERIALS PLANNER/PRODUCTION PLANNER Height 180.3 cm (5' 11) 05/03/2018 12:50 AM MATERIALS PLANNER/PRODUCTION PLANNER Body Mass Index 32.08 05/03/2018 12:50 AM MATERIALS PLANNER/PRODUCTION PLANNER Plan of Treatment Health Maintenance Due Date Last Done Comments COLOGUARD (AGES 45-75) - COL ON CA SCREENING 1978 COLON MONITORING 1978 COLONOSCOPY - COLON CA SCREENING 1978 CT COLONOGRAPHY - COLON CA SCREENING 1978 Colorectal Cancer Screening 1978 FIT - COLON CA SCREENING 1978 FLEX SIG - COLON CA SCREENING 1978 LIPID TESTING 1978 HIV SCREENING 1993 HEPATITIS C SCREENING 09/21/1996 HEPATITIS B VACCINE (1 of 3 - 19+ 3-dose series) 1997 COVID-19 VACCINE ( - 2023-2 5 season) 2023 DEPRESSION SCREENING 04/10/2024 INFLUENZA VACCINE (#1) 2024 DTAP/TDAP/TD VACCINES (4 - T d or Tdap) 05/03/2028 05/03/2018, 11/15/2013, 07/29/1998 ZOSTER VACCINE (1 of 2) 2028 PNEUMOCOCCAL VACCINE Aged Out 07/29/1998 No long er eligible based on patient's age to complete this topic HIB VACCINE Aged Out No longer eligi ble based on patient's age to complete this topic HPV VACCINE Aged Out No longer eligi ble based on patient's age to complete this topic MENINGOCOCCAL (Group B) VACCINE SHARED DECISION-MAKING Aged Out No longer eligible based on patient's age to complete this topic MENINGOCOCCAL GROUPS A/C/Y/W VACCINE Aged Out No longer eligible b ased on patient's age to complete this topic Insurance HEALTH CARE TP THIRD GREEN PARTY LIABILITY Republican Liability [facility] Advance Directives * Full Code (Latest Code Status on File) Date Activated Date Inactivated Comments 05/03/2018 2:11 AM 05/04/2018 5:29 PM Care Teams Dot Net Developer Relationship Specialty Start Date End Date Malik Valladares MD PCP - General Internal Medicine 05/02/18
--- NOTE | 2024-10-11 10:34 | ED_ITS ---
HPI - Back Pain/Injury General Chief Complaint: Back Pain/Injury Stated Complaint: back pain History of Present Illness HPI Narrative: Salty is a previously healthy 44M that prested to the ED with low back pain for two days. He has pain in his low back that was radiating to his right buttock but now it goes down the leg with some tingling. No trauma, loss of bowel or bladder control, no paralysis. Related Data Allergies Allergy/AdvReac Type Severity Reaction Status Date / Time No Known Allergies Allergy Verified 10/11/24 10:34 Review of Systems Review of Systems: All systems reviewed & are unremarkable except as noted in HPI and below PMFSH Past Medical History Medical History Patient denies medical problems Exam Const: General: cooperative, no acute distress, well developed, alert, awake and Physically active Orientation/consciousness: oriented to person, oriented to place and oriented to time Other: Grunting in pain. HENMT: Head: normal to inspection, normocephalic and atraumatic Ears: hearing grossly normal bilaterally and external ears normal Face/Nose/Sinus: Normal external nose present Eyes: General: appearance normal, both eyes and all related structures Periorbital: periorbital findings normal Sclera: sclerae normal Pupils: Equal, round and reactive pupils present Neck: Neck: normal visual inspection Chest: Chest palpation & inspection: normal inspection of the chest Resp: Effort & Inspection: normal respiratory effort, able to speak in complete sentences and no respiratory distress Cardio: Jugular venous distension: no JVD Back/Spine/Pelvis: Other: decreased ROM in the lumbar spine Skin: General skin exam: normal color and no rashes or lesions noted Neuro: General: oriented to person, oriented to place and oriented to time Cranial nerves: Yes Equal, round and reactive pupils present Extrem: General: normal to inspection Course Course Emergency Course: PROCEDURE: CT lumbar spine without intravenous contrast. COMPARISON: None TECHNIQUE: Multiple contiguous axial images of the lumbar spine were performed without the administration of intravenous contrast. DLP: 1627 mGy-cm FINDINGS: The alignment of the lumbar spine is maintained. Degenerative disease is noted, with bridging osteophyte formation and disc space narrowing at the levels of T11/T12 and L1/L2. Anterior osteophyte formation within the inferior endplate of the vertebral body of L3. Superior endplate sclerosis at the level of S1 without significant disc space narrowing. AT THE LEVEL OF L1/L2: No significant degenerative disc disease is identified. AT THE LEVEL OF L2/L3: A broad-based disc protrusion is identified with mass effect on both the spinal canal and bilateral neural foramen. Trace hypertrophy of the ligamentum flavum is also noted, contributing to the degree of spinal stenosis. Spinal canal measures 14.8 mm in anterior to posterior dimension at this level. AT THE LEVEL OF L3/L4: A right paracentral disc protrusion with mass effect on both the spinal canal and right neural foramen. Moderate hypertrophy of the ligamentum flavum is also noted contributing to the degree of spinal stenosis. The spinal canal measures 12.2 mm in anterior to posterior dimension at this level. AT THE LEVEL OF L4/L5: A right paracentral disc protrusion with mass effect on both the spinal canal and right neural foramen. Hypertrophy of the ligamentum flavum is also noted, contributing to the degree of spinal stenosis The spinal canal measures 10.4 mm in anterior to posterior dimension at this level. AT THE LEVEL OF L5/S1: No significant disc protrusion. No acute compression fractures are present. No significant atrophy of the paraspinous musculature is present Asymmetric iliopsoas muscles are noted, with the left being larger than the right, likely compensating for the right paracentral disc disease. Pain decreased from a 10 to a 7 after meds but he was able to ambulate on his own. Vital Signs Vital signs: Vital Signs Temperature 98.0 F 10/11/24 10:39 Pulse Rate 60 10/11/24 10:39 Respiratory Rate 18 10/11/24 10:39 Blood Pressure 158/102 H 10/11/24 10:39 Pulse Oximetry 96 10/11/24 10:39 Oxygen Delivery Room Air 10/11/24 10:39 Temperature 98.0 F 10/11/24 10:39 Pulse Rate 60 10/11/24 10:39 Respiratory Rate 18 10/11/24 10:39 Blood Pressure 158/102 H 10/11/24 10:39 Pulse Oximetry 96 10/11/24 10:39 Oxygen Delivery Room Air 10/11/24 10:39 Discharge Plan Discharge Clinical Impression: Acute lumbar radiculopathy, Spinal stenosis Patient Disposition: Home Condition: Stable Instructions: Acute Low Back Pain (ED) Additional Instructions: Keep your appointment with your primary care provider next week. Patient Language: Mongolian Prescriptions: New hydrocodone-acetaminophen 5-325 mg tablet 1 tablet PO Q8H PRN (Reason: pain) Qty: 10 0RF meloxicam 15 mg tablet 15 mg PO DAILY Qty: 10 0RF gabapentin 300 mg capsule 300 mg PO TID Qty: 30 0RF No Action amoxicillin-pot clavulanate 875-125 mg tablet 1 tablet PO Q12H Qty: 14 0RF loratadine [Claritin] 10 mg tablet 10 mg PO DAILY Qty: 14 0RF Follow-up/Referrals: Gail,Nupur Arenas APN [Primary Care Provider] -
[2024-10-11 10:39] VITALS: BP 158/102; PULSE 60; RESP 18; TEMP 36.7; O2SAT 96
[2024-10-11] MEDS: GABAPENTIN 300 MG CAPSULE PO (10:47)
[2024-10-11] MEDS: KETOROLAC 30 MG/ML VIAL (*BKC) IM (10:48)
[2024-10-11] MEDS: MORPHINE SULFATE (*CRX) 4 MG/ML INJ IM (10:48)
--- OUTSIDE RECORDS SUMMARY | 2024-10-11 11:09 | XMS_ITS | Encounter Summary ---
Author Organization [facility] Address 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
--- OUTSIDE RECORDS SUMMARY | 2024-10-11 11:09 | XMS_ITS | Encounter Summary ---
Author Organization [facility] Address 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
--- OUTSIDE RECORDS SUMMARY | 2024-10-11 11:09 | XMS_ITS | Encounter Summary ---
Author Organization [facility] Address 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
--- OUTSIDE RECORDS SUMMARY | 2024-10-11 11:09 | XMS_ITS | Encounter Summary ---
Author Organization [facility] Address [address] [place] [address] Care Team Providers Care Hat Parts Cutter Machine Name Role Phone Malik Valladares MD Primary Care Provider [phone] Encounter Details Date Type Department Care Team (Late st Contact Info) Description 06/13/2006 Outpatient Historical [facility] Marco Sanchez MD [address] [place] [address] [address] [place] [address] Stricture and Stenosis of Esophagus (Primary Dx) Social History Tobacco Use Types Packs/Day Years Used Date Smoking Tobacco: Never Assessed Sex and Gender Information Value Date Recorded Sex Assigned at Not on file Legal Sex Male 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 [address] [place] [address] PCP - General 02/10/04 documented as of this encounter
--- OUTSIDE RECORDS SUMMARY | 2024-10-11 11:09 | XMS_ITS | Encounter Summary ---
Author Organization [facility] Address 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 [address] [place] [address] PCP - General 02/10/04 documented as of this encounter
--- OUTSIDE RECORDS SUMMARY | 2024-10-11 11:09 | XMS_ITS | Clinical Summary ---
Author Organization [facility] Address [address] [place] [address] Care Team Providers Care Program Director/Traffic Director Name Role Phone Malik Valladares MD Primary Care Provider [phone] Allergies Active Allergy Reactions Criticality Noted Date [...] on file Legal Sex Male 5:27 AM DIRECTOR ACUTE Gender Identity Not on file Sexual Orientation [...] to complete this topic Insurance Care Teams Program Director/Traffic Director Relationship Specialty Start Date End Date Malik Valladares MD [address] [place] [address] PCP - General 02/10/04
--- OUTSIDE RECORDS SUMMARY | 2024-10-11 11:09 | XMS_ITS | Encounter Summary ---
Author Organization [facility] Address 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
--- OUTSIDE RECORDS SUMMARY | 2024-10-11 11:09 | XMS_ITS | Clinical Summary ---
Author Organization [facility] Address [address] [place] [address] Care Team Providers Care Director Hair Name Role Phone Malik Valladares MD Primary Care Provider [phone] Source Comments [facility],non-owned Affiliates and Associated Physician Practices is amultiple site organization consisting of ambulatory clinics and hospital sitesin [place], [place], [place] and [place]. This disclosure is being madepursuant to the Care Everywhere program and may not contain all information available regarding this patient. Last updated 17.[facility] Medications * Be aware that medications may [...] on file Legal Sex Male 12:16 AM BUSINESS OPERATIONS ANALYST Gender Identity Not on file Sexual Orientation Not on file Last Filed Vital Signs Vital Sign Reading Time Taken Comments Blood Pressure 141/86 05/04/2018 7:00 AM BUSINESS OPERATIONS ANALYST Pulse 96 05/04/2018 7:00 AM BUSINESS OPERATIONS ANALYST Temperature 36.2 C (97.1 F) 05/04/2018 12:43 AM BUSINESS OPERATIONS ANALYST Respiratory Rate 16 05/04/2018 7:00 AM BUSINESS OPERATIONS ANALYST Oxygen Saturation 97% 05/04/2018 6:00 AM BUSINESS OPERATIONS ANALYST Inhaled Oxygen Concentration - - Weight 104.3 kg (230 lb) 05/03/2018 12:50 AM BUSINESS OPERATIONS ANALYST Height 180.3 cm (5' 11) 05/03/2018 12:50 AM BUSINESS OPERATIONS ANALYST Body Mass Index 32.08 05/03/2018 12:50 AM BUSINESS OPERATIONS ANALYST Plan of Treatment Health Maintenance Due Date [...] this topic Insurance HEALTH CARE TP THIRD LIBERTARIAN LIABILITY Democrat Liability [facility] Advance Directives * Full Code (Latest Code Status on File) Date Activated Date Inactivated Comments 05/03/2018 2:11 AM 05/04/2018 5:29 PM Care Teams Director Hair Relationship Specialty Start Date End Date Malik Valladares MD PCP - General Internal Medicine 05/02/18
--- OUTSIDE RECORDS SUMMARY | 2024-10-11 11:09 | XMS_ITS | Encounter Summary ---
Author Organization [facility] Address 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 Gender Identity Not on file Sexual Orientation Not on file documented as of this encounter Last Filed Vital Signs Vital Sign Reading Time Taken Comments Blood Pressure 130/88 05/07/2003 4:00 PM MANAGEMENT TRAINEE Pulse - - Temperature - - Respiratory Rate - - Oxygen Saturation - - Inhaled Oxygen Concentration - - Weight 112.5 kg (248 lb) 05/07/2003 4:00 PM MANAGEMENT TRAINEE Height 175.3 cm (5' 9) 05/07/2003 4:00 PM MANAGEMENT TRAINEE Body Mass Index 36.62 05/07/2003 4:00 PM MANAGEMENT TRAINEE documented in this encounter Plan of Treatment Not on file documented as of this encounter Visit Diagnoses Not on filedocumented in this encounter Care Teams Shrimp Header Relationship Specialty Start Date End Date Malik Valladares MD [address] [place] [phone] PCP - General 02/10/04 documented as of this encounter
[2024-10-11 11:35] VITALS: BP 158/102; PULSE 61; PULSE 67; RESP 18; RESP 20; TEMP 36.6; O2SAT 98; O2SAT 99
== END 2024-10-11 11:35 | disposition home or self-care (01) ==
PROVIDERS: Emergency Provider Family Medicine; PCP Nurse Practitioner Family
DX: M54.16 Radiculopathy, lumbar region (principal)
CPT/HCPCS: 72131; 96372; 99284; A9270; J1885; J2270